=== PATIENT | female | born 1950 | race African-American/Black ===

== ENCOUNTER 2016-12-22 14:01 | Emergency (ER) | payer MEDICARE, OTHER ==
[~2016-12-22] VITALS: Ht 162.6 cm; Wt 90.7 kg
[~2016-12-22 14:01] MED LIST: AMLODIPINE BESY10 MG ORAL; ATENOLOL100 MG ORAL; AUGMENTIN 875-1 EAC1 ORAL; DULERA 100 MCG/13 GM INH; FUROSEMIDE20 M1 ORAL; FUROSEMIDE40 MG ORAL; HYDROCODON-ACE1 EA13 ORAL; IBUPROFEN600 MG ORAL; MONTELUKAST SOD10 MG ORAL; NORCO 5-325 TA1 EACH ORAL; POTASSIUM CHLOR8 ME2 PO; PROAIR HFA8.5 GM INH
[2016-12-22] MEDS ORDERED: BUDESONIDE0.5 MG/2 M IH (14:15)
[2016-12-22 14:40] VITALS: BP 139/78
[2016-12-22 15:54] VITALS: BP 158/58
--- NOTE | 2016-12-22 16:32 | Diagnostic Imaging Report ---
Indication: SWELL Technique: One view of the chest Comparison: 05/06/2015 Findings: No acute infiltrates, effusions, or congestion. Tortuous calcified aorta. Normal heart size. Upper mediastinum unremarkable. No significant change Impression: No acute process.
--- NOTE | 2016-12-22 20:46 | Emergency Room Report ---
History of Present Illness General Chief Complaint: General Complaint Source: Patient, Medical Record (SHUKRI MORENO PSudeepASudeep) Present Illness HPI The patient is a 58-year-old female with a history of hypertension, diabetes, COPD, and CHF presenting for left leg swelling and left-sided back pain with inspiration. The pt was being seen by her PMD who told her to go downstairs and get a chest xray. The pt mistakenly came to the ER for the chest xray. The patient was evaluated for DVT with ultrasound which was unremarkable. Pain is described as an 8/10 sharp sensation to the mid left back and occurs with deep inspiration. It does not radiate. The patient denies other symptoms including nausea, vomiting, fever, chills, cough, shortness of breath (SHUKRI MORENO P.A.) Allergies: Coded Allergies: ASPIRIN (Unverified Allergy, Intermediate, Hives, 07/04/14) IODINE (Unverified Allergy, Mild, Hives, 07/04/14) Patient History Past Medical History: see triage record Pertinent Family History: none Reviewed Nursing Documentation: PMH: Agreed, PSxH: Agreed (SHUKRI MORENO P.A.) Nursing Documentation-PMH Hx Hypertension: Yes Hx Pacemaker: No Hx Asthma: Yes Hx COPD: Yes Hx Diabetes: No Hx Cancer: Yes Hx Gastrointestinal Problems: No Hx Neurological Problems: No (SHUKRI MORENO P.A.) Review of Systems All Other Systems: negative except mentioned in HPI (SHUKRI MORENO P.A.) Physical Exam Vital Signs Date Time Temp Pulse Resp B/P Pulse Ox O2 Delivery O2 Flow Rate FiO2 12/22/16 14:07 98.1 61 16 139/78 99 Room Air Sp02 EP Interpretation: reviewed, normal General Appearance: no apparent distress, alert, GCS 15, non-toxic Head: normocephalic, atraumatic Eyes: bilateral eye PERRL, bilateral eye normal inspection ENT: hearing grossly normal, normal pharynx, no angioedema, normal voice Respiratory: lungs clear, no respiratory distress, no accessory muscle use, no wheezing, speaking full sentences Cardiovascular #1: regular rate, rhythm, no murmur, edema - L lower leg Musculoskeletal: normal range of motion, calf tenderness - L sided, swelling - L lower leg Neurologic: alert, oriented x3, responsive, normal gait Psychiatric: judgement/insight normal, memory normal, mood/affect normal, no suicidal/homicidal ideation Skin: normal color, no rash, warm/dry, well hydrated Lymphatic: no adenopathy (SHUKRI MORENO.Brennon) Medical Decision Making PA Attestation Dr. Giraldo is my supervising physician. Patient management was discussed with my supervising physician (SHUKRI MORENO) Medicare Attestation The history of Erin Carroll has been reviewed and management options for her have been examined and discussed by Prakash Giraldo. I have personally examined and interviewed the patient. (PRAKASH GIRALDO M.D.) Diagnostic Impression: Primary Impression: Encounter for generalized patient complaints ER Course The patient is a 58-year-old female with a history of hypertension, diabetes, COPD, and CHF presenting for left leg swelling and left-sided back pain with inspiration Differential diagnoses considered but not limited to: DVT, PE, COPD exacerbation , CHF, pneumonia, bronchitis, muscle spasm/strain Physical exam: Afebrile. No tachypnea. HEENT exam is unremarkable Lungs are clear to auscultation bilaterally. No respiratory distress. There is tenderness to palpation over the posterior L mid thoracic ribs. Skin is warm and dry. No rash Left leg: There is 2+ edema To the mid L leg which extends past the ankle Dr. Giraldo has spoken with Dr. Holliday regarding this patient and the chest xray. The pt will be WI'ed and will FU with him as the patient was not supposed to present to the ER. ER precautions given (SHUKRI MORENO P.ASudeep) Chest X-Ray Diagnostic Results EP Interpretation: Yes Findings: no consolidation, no effusion, no pneumothorax, no acute cardiopulmonary disease Number of Views: 1 PA Scribe Text I am acting as scribe for my supervising physician. My supervising physician's interpretation of the chest xrays are there is no consolidation, no effusion, no acute cardiopulmonary disease, no pneumothorax (SHUKRI MORENO P.ASudeep) Last Vital Signs Date Time Temp Pulse Resp B/P Pulse Ox O2 Delivery O2 Flow Rate FiO2 12/22/16 15:54 98.1 58 16 158/58 99 Room Air Status: improved (SHUKRI MORENO P.A.) Disposition: HOME, SELF-CARE Condition: Improved Referrals: SHANE HOLLIDAY (PCP) Additional Instructions: I discussed my findings with the patient. All questions and concerns have been answered. Treatment and medication compliance have been addressed. I advised the patient that they need to follow up with primary doctor as soon as possible. Return to ED if symptoms worsen, new symptoms arise, or if needed for any reason. Patient verbalized understanding of discharge instructions. SHUKRI MORENO Dec 22, 2016 20:46 PRAKASH GIRALDO M.D. Dec 25, 2016 02:41
== END 2016-12-22 15:58 | disposition home or self-care (01) ==
LOC: EMR 15:53
DX: R60.0 Localized edema (principal); M54.9 Dorsalgia, unspecified; I10 Essential (primary) hypertension; J45.909 Unspecified asthma, uncomplicated; J44.9 Chronic obstructive pulmonary disease, unspecified; I50.9 Heart failure, unspecified; E11.9 Type 2 diabetes mellitus without complications; Z85.9 Personal history of malignant neoplasm, unspecified; Z88.6 Allergy status to analgesic agent
CPT/HCPCS: 71010; 99283

== ENCOUNTER 2017-02-14 11:05 | Outpatient (CLI) | payer MEDICARE, OTHER ==
[~2017-02-14 11:05] MED LIST changes: +BUDESONIDE0.5 MG/2 M IH
--- NOTE | 2017-02-14 13:49 | Diagnostic Imaging Report ---
Indication: Left-sided weakness Technique: sagittal T1 fast spin echo, axial T1 FLAIR, axial T2 FLAIR, axial T2 FS PROPELLER, axial T2* GRE, axial diffusion weighted images. ADC and exponential ADC maps generated Comparison: Brain CT dated 06/14/12 Findings: No abnormal areas of restricted diffusion to suggest acute infarction. No acute hemorrhage or edema. No mass effect nor midline shift. There is age-related enlargement of ventricles and extra-axial CSF spaces. There is considerable periventricular deep white matter hyperattenuation, probably chronic ischemic change. Vascular flow voids are preserved. Visualized orbits and sinuses are unremarkable. Impression: Chronic and age-related changes. Negative for acute intracranial bleed, mass effect, or infarct
--- NOTE | 2017-02-14 13:57 | Diagnostic Imaging Report ---
Indications: Left-sided weakness Technique: 3D [id number] images obtained through the [facility] [place]. MIP reconstructions were generated in multiple rotational projections Comparison: None Findings: There is considerable image degradation due to motion artifact The right vertebral artery terminates at the PICA origin, is absent distal to it. The left vertebral artery is patent, nonstenotic, fills a diffusely small caliber basilar artery. The bilateral P1 segments are small, poorly visualized. The posterior sural arteries fill predominantly off of large patent posterior communicating arteries. The distal internal carotid arteries are patent, nonstenotic. The bilateral A1 segments are patent. It is unclear whether and anterior communicating artery is present. The anterior cerebral arteries are not well visualized. The bilateral M1 segments are not well-visualized due to motion artifact: Presence or absence of stenoses cannot be assessed. The proximal middle cerebral artery branches appear to be patent but are likewise not well assessed. No definite aneurysm or vascular malformation demonstrated. 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
== END 2017-02-14 13:00 | disposition home or self-care (01) ==
LOC: MRI 11:05
DX: R53.1 Weakness (principal); Z86.73 Personal history of transient ischemic attack (TIA), and cerebral infarction without residual deficits
CPT/HCPCS: 70544; 70551

== ENCOUNTER 2017-09-07 13:29 | Outpatient (CLI) | payer MEDICARE, OTHER | END 2017-09-07 15:29 | disposition home or self-care (01) | LOC: RAD 13:29 | DX: J45.909 Unspecified asthma, uncomplicated (principal) | CPT/HCPCS: 71020 ==

== ENCOUNTER 2018-01-07 12:15 | Inpatient (IN) | payer MEDICARE, OTHER ==
[~2018-01-07] VITALS: Ht 162.6 cm; Wt 106.6 kg
[2018-01-07 13:39] VITALS: BP 124/68
[2018-01-07 13:41] LABS: ANION GAP 9 mmol/L (5-15); BLOOD UREA NITROGEN 22 mg/dL (7-18); CALCIUM 9.3 MG/DL (8.5-10.1); CARBON DIOXIDE 28 MMOL/L (21-32); CHLORIDE 100 MMOL/L (98-107); CREATININE 1.5 MG/DL (0.55-1.30); POTASSIUM 4.4 MMOL/L (3.5-5.1); SODIUM 136 MMOL/L (136-145)
[2018-01-07 13:50] LABS: BASOPHILS % (AUTO) 1.7 % (0.0-2.0); EOSINOPHILS % (AUTO) 6.2 % (0.0-3.0); HEMATOCRIT 33.4 % (37.0-47.0); HEMOGLOBIN 11.5 G/DL (12.0-16.0); LYMPHOCYTES % (AUTO) 33.6 % (20.0-45.0); MEAN CORPUSCULAR VOLUME 92 FL (80-99); MONOCYTES % (AUTO) 12.3 % (1.0-10.0); NEUTROPHILS % (AUTO) 46.2 % (45.0-75.0); PLATELET COUNT 178 K/UL (150-450); RED BLOOD COUNT 3.62 M/UL (4.20-5.40); RED CELL DISTRIBUTION WIDTH 11.6 % (11.6-14.8); WHITE BLOOD COUNT 7.4 K/UL (4.8-10.8)
[2018-01-07 13:56] LABS: ALANINE AMINOTRANSFERASE 31 U/L (12-78); ALBUMIN/GLOBULIN RATIO 0.6 (1.0-2.7); ALKALINE PHOSPHATASE 50 U/L (46-116); ASPARTATE AMINO TRANSFERASE 42 U/L (15-37); BILIRUBIN,TOTAL 0.5 MG/DL (0.2-1.0); CKMB 1.5 NG/ML (0.0-3.6)
[2018-01-07 13:58] LABS: INR 1.1 (0.9-1.1)
[2018-01-07] MEDS ORDERED: Morphine Sulfate 4mg/ml Inj IVP ONE (14:15)
[2018-01-07] MEDS ORDERED: Piperacillin/Tazobactam 3.375 GM in NS 110 ML IVPB ONE (15:15)
[2018-01-07] MEDS ORDERED: Vancomycin 1.5gm/D5W 250ml 250 ML IVPB ONE (15:15)
--- NOTE | 2018-01-07 15:16 | Emergency Room Report ---
History of Present Illness General Chief Complaint: Pain Source: Patient (BELLO MORENO) Present Illness HPI The patient is a 67-year-old female with a history of hypertension, diabetes, COPD, and CHF presenting for R leg swelling. She states that this began occasionally 5 days prior after receiving an IM injection of steroids for asthma. She denies any known allergies and states that she has had multiple injections of the same medication without any problem. Pain is a 10 out of 10 dull ache to the entire right leg. Worse with movement and touch. She also noticed one day fever and chills which has now resolved. She denies any numbness or tingling. She denies any injury to the area. She has tried Motrin and Tylenol which has not helped. She denies any other symptoms including shortness of breath, chest pain, dizziness, cough (BELLO MORENO) HPI Patient also reports "paper heart attack" in the past, though no treatment or work up alleged. Denies chest pain, dyspnea. (Indio Bishop M.D.) Allergies: Coded Allergies: IODINE (Unverified Allergy, Mild, Hives, 07/04/14) Patient History Past Medical History: see triage record Pertinent Family History: none Last Menstrual Period: NA Reviewed Nursing Documentation: PMH: Agreed; PSxH: Agreed (BELLO MORENO) Social History Narrative with (Indio Bishop M.D.) Nursing Documentation-PMH Hx Hypertension: Yes Hx Pacemaker: No Hx Asthma: Yes Hx COPD: Yes Hx Diabetes: No Hx Cancer: No Hx Gastrointestinal Problems: No Hx Neurological Problems: No (BELLO MORENO) Review of Systems All Other Systems: negative except mentioned in HPI (BELLO MORENO) Physical Exam Vital Signs Date Time Temp Pulse Resp B/P (MAP) Pulse Ox O2 Delivery O2 Flow Rate FiO2 01/07/18 12:24 98.5 70 16 124/68 95 98.4 01/07/18 13:39 Room Air 01/07/18 15:07 98 Sp02 EP Interpretation: reviewed, normal General Appearance: no apparent distress, alert, GCS 15, non-toxic Head: normocephalic, atraumatic Eyes: bilateral eye normal inspection, bilateral eye PERRL ENT: hearing grossly normal, normal pharynx, no angioedema, normal voice Neck: full range of motion, supple/symm/no masses Respiratory: chest non-tender, lungs clear, normal breath sounds, no wheezing, speaking full sentences Cardiovascular #1: regular rate, rhythm, no edema Gastrointestinal: normal bowel sounds, non tender, soft, non-distended, no guarding, no rebound Musculoskeletal: normal range of motion, inflammation - R lower leg, swelling - R leg from knee to toes, tender - Diffuse R leg Neurologic: alert, oriented x3, responsive, motor strength/tone normal, sensory intact, speech normal Psychiatric: judgement/insight normal, memory normal, mood/affect normal, no suicidal/homicidal ideation Skin: other - erythema to R lower leg from mid tobia to mid foot Lymphatic: adenopathy - R inguinal (BELLO MORENO P.ASudeep) Medical Decision Making PA Attestation Dr. Bishop is my supervising physician. Patient management was discussed with my supervising physician (BELLO MORENO PSudeepASudeep) Diagnostic Impression: Primary Impression: Non-ST elevation NV (NSTEMI) Additional Impression: Cellulitis of leg, right ER Course The patient is a 67-year-old female with a history of hypertension, diabetes, COPD, and CHF presenting for R leg swelling. DDx considered but not limited to: Cellulitis, DVT, allergic reaction, CHF, NV, among others PE: vitals WNL. NAD RRR. No MRG Lungs CTA bilat. No resp distress + R inguinal lymph nodes R leg from knee to toes has 3+ pitting edema with erythema and is warm to the touch. + Tender. SILT CBC unremarkable. No leukocytosis CMP unremarkable Lactate essentially negative Troponin I essentially positive at 0.[address] segment changes. NSR DVT study negative CXR unremarkable for acute findings The patient is given IV vancomycin and Zosyn and will be admitted to this hospital in serious but stable condition for right leg cellulitis as well as NSTEMI Dr. Bishop has spoken with admitting physician Laboratory Tests Test 01/07/18 13:05 01/07/18 14:15 White Blood Count 7.4 K/UL (4.8-10.8) Red Blood Count 3.62 M/UL (4.20-5.40) L Hemoglobin 11.5 G/DL (12.0-16.0) L Hematocrit 33.4 % (37.0-47.0) L Mean Corpuscular Volume 92 FL (80-99) Mean Corpuscular Hemoglobin 31.7 PG (27.0-31.0) H Mean Corpuscular Hemoglobin Concent 34.3 G/DL (32.0-36.0) Red Cell Distribution Width 11.6 % (11.6-14.8) Platelet Count 178 K/UL (150-450) Mean Platelet Volume 7.2 FL (6.5-10.1) Neutrophils (%) (Auto) 46.2 % (45.0-75.0) Lymphocytes (%) (Auto) 33.6 % (20.0-45.0) Monocytes (%) (Auto) 12.3 % (1.0-10.0) H Eosinophils (%) (Auto) 6.2 % (0.0-3.0) H Basophils (%) (Auto) 1.7 % (0.0-2.0) Prothrombin Time 11.0 SEC (9.30-11.50) Prothrombin Time INR 1.1 (0.9-1.1) PTT 24 SEC (23-33) Sodium Level 136 MMOL/L (136-145) Potassium Level 4.4 MMOL/L (3.5-5.1) Chloride Level 100 MMOL/L (98-107) Carbon Dioxide Level 28 MMOL/L (21-32) Anion Gap 9 mmol/L (5-15) Blood Urea Nitrogen 22 mg/dL (7-18) H Creatinine 1.5 MG/DL (0.55-1.30) H Estimate Glomerular Filtration Rate 41.7 mL/min (>60) Glucose Level 88 MG/DL (74-106) Calcium Level 9.3 MG/DL (8.5-10.1) Total Bilirubin 0.5 MG/DL (0.2-1.0) Aspartate Amino Transferase (AST) 42 U/L (15-37) H Alanine Aminotransferase (ALT) 31 U/L (12-78) Alkaline Phosphatase 50 U/L (46-116) Creatine Kinase MB 1.5 NG/ML (0.0-3.6) Troponin I 0.173 ng/mL (0.000-0.056) Total Protein 7.9 G/DL (6.4-8.2) Albumin 3.0 G/DL (3.4-5.0) L Globulin 4.9 g/dL Albumin/Globulin Ratio 0.6 (1.0-2.7) L Lipase 137 U/L (73-393) Lactic Acid Level 0.40 mmol/L (0.66-2.22) L Lab Results Impression CBC unremarkable. No leukocytosis CMP unremarkable Lactate essentially negative Troponin I essentially positive at 0.173 (BELLO MORENO P.A.) ER Course Please see above notes. I examined this patient and agree with the findings. Discussed with Dr. Holliday. (Indio Bishop M.D.) EKG Diagnostic Results EP Interpretation: NSR, no acute findings Rate: normal - 66 Rhythm: NSR ST Segments: no acute changes ASA given to the pt in ED: Yes PA Scribe Text EKG was reviewed and read with my supervising physician. No acute ST segment changes are seen. Normal rate and rhythm. No acute changes. ASA given due to Troponin elevation (BELLO MORENO P.A.) Rate: normal Rhythm: NSR ST Segments: no acute changes (Indio Bishop M.D.) Rhythm Strip Diag. Results EP Interpretation: yes Rhythm: NSR, no PVC's, no ectopy (Indio Bishop M.D.) Chest X-Ray Diagnostic Results Chest X-Ray Diagnostic Results : Chest X-Ray Ordered: Yes # of Views/Limited/Complete: 1 View Indication: Other - edema EP Interpretation: Yes PA Xray: Interpretation reviewed, by supervising MD, and agrees with findings. Interpretation: no consolidation, no effusion, no pneumothorax, no acute cardiopulmonary disease Impression: No acute disease Electronically Signed by: Bello Moreno PA-C (BELLO MORENO P.A.) Chest X-Ray Diagnostic Results : EP Interpretation: Yes Impression: No acute disease Electronically Signed by: I reviewed this xray and agree with findings - Indio Bishop MD (Indio Bishop M.D.) CT/MRI/US Diagnostic Results CT/MRI/US Diagnostic Results : Imaging Test Ordered: Venous duplex R leg Impression Negative (BELLO MORENO P.A.) Last Vital Signs Date Time Temp Pulse Resp B/P (MAP) Pulse Ox O2 Delivery O2 Flow Rate FiO2 4/15/18 15:07 69 16 Room Air 98 01/07/18 14:43 98.4 01/07/18 13:39 124/68 95 Status: improved (BELLO MORENO) Status: improved (Indio Bishop M.D.) Disposition: ADMITTED INPATIENT Condition: Serious Referrals: SHANE HOLLIDAY (PCP) BELLO MORENO Jan 07, 2018 15:16 Indio Bishop M.D. Jan 07, 2018 21:16
[2018-01-07] MEDS ORDERED: ASPIR 8181 MG ORAL (15:44)
[2018-01-07] MEDS ORDERED: MULTIVITAMINS1 EAC2 ORAL (15:44)
[2018-01-07 15:45] VITALS: BP 140/89
[2018-01-07 16:50] VITALS: BP 150/87
[2018-01-07] MEDS ORDERED: Milk of Magnesia 30ml Ud ORAL PRN (18:45)
[2018-01-07] MEDS ORDERED: Zolpidem 5mg tab ORAL PRN (18:45)
[2018-01-07 20:00] VITALS: BP 147/76
[2018-01-07] MEDS ORDERED: Atenolol 12.5mg PO SCH (21:00)
[2018-01-07] MEDS ORDERED: Atenolol 25mg tab ORAL SCH (21:30)
[2018-01-07] MEDS: Heparin 5000 units/ml inj SUBQ SCH (21:58)
[2018-01-07] MEDS: Nitroglycerin 2% oint pkt TOPIC SCH (21:59)
[2018-01-08] VITALS: BP 159/78
[2018-01-08] MEDS: HYDROcodone/Acetamin 10/325 tab ORAL PRN ×3 (00:40→19:37)
[2018-01-08] MEDS: Albuterol 90mcg Inhaler 8gm INH SCH ×4 (01:00→19:03)
--- NOTE | 2018-01-08 02:15 | Consultation ---
DATE OF CONSULTATION: 01/07/2018 CARDIOLOGY CONSULTATION CONSULTING PHYSICIAN: Indio Martini M.D. REQUESTING PHYSICIAN: Padilla Quiros M.D. REASON FOR CONSULTATION: Elevated troponin level. HISTORY OF PRESENT ILLNESS: This is a 67-year-old female with multiple risk factors for coronary artery disease, who presented to the emergency room with swelling of her right leg. It began 5 days ago after receiving intramuscular injection of steroids for an asthma attack. She has had previous injections of steroids without any problem. The pain in her leg was severe and she had limitations of her movement. Some fevers and chills also were noted yesterday. She has not had any chest pain or shortness of breath. The patient notes that she was told of a possible heart attack in the past although she had no symptoms or treatment. ALLERGIES: Include iodine. PAST MEDICAL HISTORY: Includes hypertension, COPD, diabetes mellitus, and history of congestive heart failure. SOCIAL HISTORY: No alcohol or substance abuse. Prior smoker. MEDICATIONS: Reviewed and reconciled. REVIEW OF SYSTEMS: Otherwise unremarkable. PHYSICAL EXAMINATION: VITAL SIGNS: Afebrile, blood pressure 124/68, pulse 70, respiratory rate 16. HEENT: Normocephalic and atraumatic. Conjunctivae pink. Oropharynx clear. Mucous membranes moist. NECK: Supple. Jugular venous pressure normal. LUNGS: Clear. CARDIAC: Regular rhythm and rate. Normal S1, S2 with a fourth heart sound. ABDOMEN: Soft, nontender. EXTREMITIES: The right leg has erythema from the midfoot to the tibia and there is associated adenopathy and warmth. DIAGNOSTIC DATA: Venous duplex of the lower extremities, negative for DVT. EKG with sinus rhythm and no acute ST-T wave changes. Chest x-ray with no acute process. LABORATORY DATA: White count 7.4, hemoglobin 11.5. Troponin 0.173. CK-MB is 1.5, which is negative. BUN 22, creatinine 1.5. Electrolytes within normal limits. Lactic acid is 0.4. IMPRESSION: 1. Cellulitis of right lower extremity. 2. Elevated troponin level with no clinical signs of acute myocardial infarction. 3. Hypertensive heart disease. 4. History of COPD. PLAN: 1. Cardiac monitoring. 2. Oral aspirin. 3. Beta-blockade. 4. Serial troponin . 5. Empiric nitrates. 6. Further assessment of coronary flow reserve. 7. We will follow. Indio Martini M.D. DR: Dustin JOB#: [id number] CC:
[2018-01-08 04:00] VITALS: BP 135/77
[2018-01-08 04:44] LABS: BASOPHILS % (AUTO) 1.2 % (0.0-2.0); EOSINOPHILS % (AUTO) 7.1 % (0.0-3.0); HEMATOCRIT 31.4 % (37.0-47.0); HEMOGLOBIN 10.9 G/DL (12.0-16.0); LYMPHOCYTES % (AUTO) 34.5 % (20.0-45.0); MEAN CORPUSCULAR VOLUME 92 FL (80-99); MONOCYTES % (AUTO) 11.9 % (1.0-10.0); NEUTROPHILS % (AUTO) 45.4 % (45.0-75.0); PLATELET COUNT 181 K/UL (150-450); RED BLOOD COUNT 3.41 M/UL (4.20-5.40); RED CELL DISTRIBUTION WIDTH 11.9 % (11.6-14.8); WHITE BLOOD COUNT 7.1 K/UL (4.8-10.8)
[2018-01-08 05:22] LABS: ANION GAP 6 mmol/L (5-15); BLOOD UREA NITROGEN 21 mg/dL (7-18); CALCIUM 8.7 MG/DL (8.5-10.1); CARBON DIOXIDE 27 MMOL/L (21-32); CHLORIDE 101 MMOL/L (98-107); CHOLESTEROL 141 MG/DL (< 200); CREATININE 1.7 MG/DL (0.55-1.30); HDL CHOLESTEROL 31 MG/DL (40-60); POTASSIUM 3.6 MMOL/L (3.5-5.1); SODIUM 134 MMOL/L (136-145); TRIGLYCERIDES 62 MG/DL (30-150)
[2018-01-08 05:27] LABS: CKMB 1.3 NG/ML (0.0-3.6)
[2018-01-08] MEDS: Nitroglycerin 2% oint pkt TOPIC SCH (06:09)
[2018-01-08 08:00] VITALS: BP 124/71
--- NOTE | 2018-01-08 08:33 | Diagnostic Imaging Report ---
Indication: Dyspnea Technique: One view of the chest Comparison: 09/07/2017 Findings: The right hemidiaphragm is elevated. The lungs and pleural spaces are clear. The heart is upper limits normal in size. The aorta is tortuous and calcified. No significant interim change Impression: No acute process
[2018-01-08] MEDS: Atenolol 12.5mg PO SCH ×2 (09:00→20:45)
[2018-01-08] MEDS: Aspirin EC 81mg tab ORAL SCH (10:13)
[2018-01-08] MEDS: Heparin 5000 units/ml inj SUBQ SCH ×2 (10:14→20:47)
[2018-01-08 12:00] VITALS: BP 143/97
[2018-01-08] MEDS: Vancomycin 1gm in D5W 275ml IVPB SCH (15:01)
[2018-01-08 16:00] VITALS: BP 135/58
[2018-01-08 20:52] VITALS: BP 141/83
--- NOTE | 2018-01-08 21:40 | Cardiology Report ---
APPROVED REPORT EKG Measurement Heart [id number] AR [id number] [id number] Sinus rhythm with occasional premature ventricular complexes Nonspecific T wave abnormality Abnormal ECG
--- NOTE | 2018-01-08 22:45 | History and Physical Report ---
DATE OF ADMISSION: 01/07/2018 REASON FOR ADMISSION: Possible non-STEMI myocardial infarction, concerned for significant cellulitis and lower extremity edema. HISTORY OF PRESENT ILLNESS: This is a 67-year-old female, well known to me. The patient presents with elevated troponin and also significant right lower extremity edema and erythema. The patient notes that her right leg has been swollen over the past five days. The patient had been receiving intramuscular injections of steroids for asthma exacerbation. The patient notes right leg pain, erythema as well as swelling. The patient did undergo a venous and arterial ultrasound, which were negative. The patient also had elevated troponin and will be admitted to telemetry. Care discussed and reviewed. The patient does follow up with me in the office on a regular basis. PAST MEDICAL HISTORY: Notable for hypertension, COPD, diabetes, and history of CHF. MEDICATIONS: Reviewed. ALLERGIES: Reviewed. SOCIAL HISTORY: The patient does not smoke or drink at this present time. She is retired. She is ambulatory. REVIEW OF SYSTEMS: Otherwise negative with the exception of the above. PHYSICAL EXAMINATION: GENERAL: A well-developed female, comfortable, in no significant distress. VITAL SIGNS: Blood pressure 143/97, pulse 78, respirations 20, sats 93% on room air, and temperature is 98.6. HEENT: Negative. Extraocular movements are grossly intact. NECK: Supple. LUNGS: Fairly clear and symmetric. No rhonchi or wheezes. CARDIAC: S1 and S2. Regular rate and rhythm without murmurs, rubs, or gallops. ABDOMEN: Soft, nontender, and nondistended. Obese. EXTREMITIES: No cyanosis or clubbing. There is significant edema of the right leg with associated erythema. NEUROLOGICAL: Grossly nonfocal. Alert and oriented x3. LABORATORY DATA: Reviewed. Hemoglobin 10.9, hematocrit 31, BUN 21, and creatinine 1.7. Troponin initially 0.17 then 0.15 then 0.16. The cholesterol appears to be fairly well controlled. TSH is normal. IMPRESSION: Possible non-ST elevation myocardial infarction versus troponin leak, evidence of chronic renal failure, evidence of chronic anemia, evidence of right lower extremity cellulitis with associated edema, and history of chronic obstructive pulmonary disease. RECOMMENDATIONS: Supportive care. Resume medication, IV antibiotics as outlined. Cardiac management with aspirin. Monitor leg exam and monitor laboratories. Monitor renal function and consider resting stress test prior to discharge. We will discuss with Cardiology further and recommend further. Padilla Quiros M.D. DR: ANAHY JOB#: [id number] CC:
[2018-01-09] VITALS: BP 132/75
--- NOTE | 2018-01-09 00:45 | Progress Note ---
DATE: 01/08/2018 CARDIOLOGY PROGRESS NOTE SUBJECTIVE: The patient still has significant pain and discomfort from her right leg with swelling continues. There is a repeat venous and arterial duplex scan noted with no clotting or arterial insufficiency. Monitored rhythm, sinus. OBJECTIVE: VITAL SIGNS: Blood pressure 141/83, pulse 82, respiratory rate 18, and afebrile. NECK: Supple. LUNGS: Clear. CARDIAC: Regular. Normal S1 and S2 with a fourth heart sound. ABDOMEN: Soft. EXTREMITIES: With 2+ edema on the right leg with warmth and erythema. LABORATORY AND DIAGNOSTIC DATA: Monitored rhythm is sinus with occasional PVC. Troponin levels remain persistently increased at 0.154, 0.167, and 0.159 respectively. CK is 181 with an MB and MB index both negative. BUN 21, creatinine 1.7, potassium 3.6, sodium 134, and bicarbonate 27. LDL cholesterol 94. TSH 1.4. IMPRESSION: 1. Right lower extremity cellulitis. 2. History of deep venous thrombosis on the left lower extremity, presently with no signs of recurrence. 3. Elevated troponin levels, likely false positive. There are no clinical signs of acute myocardial infarction. 4. Chronic kidney disease. 5. Hyponatremia. 6. lipid panel. 7. Hypertensive heart disease. PLAN: 1. Antimicrobials. 2. DVT prophylaxis. 3. Cardiac monitoring. 4. Anti-platelet and antianginal therapy. 5. We will pursue myocardial perfusion scan for assessment of coronary flow reserve prior to discharge and risk stratify for further care. Indio Martini M.D. DR: LILLIE JOB#: [id number] CC:
[2018-01-09] MEDS: Albuterol 90mcg Inhaler 8gm INH SCH ×4 (01:00→19:26)
[2018-01-09 04:00] VITALS: BP 144/88
[2018-01-09 05:59] LABS: BASOPHILS % (AUTO) 1.7 % (0.0-2.0); EOSINOPHILS % (AUTO) 4.7 % (0.0-3.0); HEMATOCRIT 31.3 % (37.0-47.0); LYMPHOCYTES % (AUTO) 40.5 % (20.0-45.0); MEAN CORPUSCULAR VOLUME 92 FL (80-99); MONOCYTES % (AUTO) 13.5 % (1.0-10.0); NEUTROPHILS % (AUTO) 39.6 % (45.0-75.0); PLATELET COUNT 179 K/UL (150-450); RED BLOOD COUNT 3.38 M/UL (4.20-5.40); RED CELL DISTRIBUTION WIDTH 11.5 % (11.6-14.8); WHITE BLOOD COUNT 8.7 K/UL (4.8-10.8)
[2018-01-09 06:23] LABS: ALANINE AMINOTRANSFERASE 28 U/L (12-78); ALBUMIN 2.8 G/DL (3.4-5.0); ALBUMIN/GLOBULIN RATIO 0.6 (1.0-2.7); ALKALINE PHOSPHATASE 48 U/L (46-116); ANION GAP 5 mmol/L (5-15); ASPARTATE AMINO TRANSFERASE 29 U/L (15-37); BILIRUBIN,TOTAL 0.5 MG/DL (0.2-1.0); BLOOD UREA NITROGEN 22 mg/dL (7-18); CALCIUM 8.8 MG/DL (8.5-10.1); CARBON DIOXIDE 28 MMOL/L (21-32); CHLORIDE 100 MMOL/L (98-107); CREATININE 1.8 MG/DL (0.55-1.30); POTASSIUM 4.1 MMOL/L (3.5-5.1); SODIUM 133 MMOL/L (136-145)
[2018-01-09 08:00] VITALS: BP 134/72
[2018-01-09] MEDS: HYDROcodone/Acetamin 10/325 tab ORAL PRN ×2 (08:06→14:08)
[2018-01-09] MEDS: Aspirin EC 81mg tab ORAL SCH (08:06)
[2018-01-09] MEDS: Heparin 5000 units/ml inj SUBQ SCH ×2 (08:08→20:29)
[2018-01-09] MEDS: Atenolol 12.5mg PO SCH ×2 (09:14→20:27)
[2018-01-09 12:00] VITALS: BP 122/58
--- NOTE | 2018-01-09 14:54 | Cardiology Report ---
APPROVED REPORT EKG Measurement Heart [id number] WA [id number] Normal sinus rhythm Nonspecific T wave abnormality Abnormal ECG
[2018-01-09 16:00] VITALS: BP 131/65
[2018-01-09] MEDS: Vancomycin 1gm in D5W 275ml IVPB SCH (16:02)
--- NOTE | 2018-01-09 16:54 | General Progress Note ---
Assessment/Plan Assessment/Plan IMPRESSION: Possible non-ST elevation myocardial infarction versus troponin leak, evidence of chronic renal failure, evidence of chronic anemia, evidence of right lower extremity cellulitis with associated edema, and history of chronic obstructive pulmonary disease. PLAN care as is IV antibiotics cards recommendations maintain same monitor as is impression, plan, and exam edited and reviewed in detail care discussed with RN Subjective Allergies: Coded Allergies: IODINE (Unverified Allergy, Mild, Hives, 07/04/14) Subjective care noted slightly improved labs and cultures noted Objective Last 24 Hour Vital Signs Date Time Temp Pulse Resp B/P (MAP) Pulse Ox O2 Delivery O2 Flow Rate FiO2 01/09/18 16:00 98.1 79 19 131/65 97 Room Air 98.1 01/09/18 15:18 67 01/09/18 13:06 80 18 95 Room Air 21 01/09/18 13:06 79 20 95 Room Air 21 01/09/18 12:00 98.1 62 19 122/58 99 Room Air 98.1 01/09/18 11:47 63 01/09/18 09:14 79 134/72 01/09/18 08:00 100.0 79 19 134/72 92 Room Air 100.0 01/09/18 07:32 75 18 95 Room Air 21 01/09/18 07:32 74 18 96 Room Air 21 01/09/18 07:31 Room Air 21 01/09/18 07:26 75 01/09/18 04:00 98.0 76 19 144/88 95 98.0 01/09/18 04:00 78 01/09/18 01:06 Room Air 21 01/09/18 01:05 Room Air 21 01/09/18 00:00 68 01/09/18 00:00 97.7 79 17 132/75 95 97.7 01/08/18 20:52 97.9 82 18 141/83 96 97.9 01/08/18 20:36 98.8 01/08/18 20:00 81 01/08/18 19:37 98.8 01/08/18 19:04 77 16 95 Room Air 21 01/08/18 19:03 78 16 95 Room Air 21 01/08/18 18:52 99.8 01/08/18 17:53 100.9 01/08/18 17:26 Nasal Cannula 2.0 28 Intake and Output 01/08/18 01/09/18 19:00 07:00 Intake Total 875.000 ml 360 ml Balance 875.000 ml 360 ml Intake Oral 600 ml 360 ml IV Total 275.000 ml # Voids 2 2 # Bowel Movements 1 Laboratory Tests 01/08/18 20:15: Troponin I 0.159H 01/09/18 03:40: Troponin I 0.163H, White Blood Count 8.7, Red Blood Count 3.38L, Hemoglobin 11.0L, Hematocrit 31.3L, Mean Corpuscular Volume 92, Mean Corpuscular Hemoglobin 32.6H, Mean Corpuscular Hemoglobin Concent 35.3, Red Cell Distribution Width 11.5L, Platelet Count 179, Mean Platelet Volume 6.3L, Neutrophils (%) (Auto) 39.6L, Lymphocytes (%) (Auto) 40.5, Monocytes (%) (Auto) 13.5H, Eosinophils (%) (Auto) 4.7H, Basophils (%) (Auto) 1.7, Sodium Level 133L , Potassium Level 4.1, Chloride Level 100, Carbon Dioxide Level 28, Anion Gap 5 , Blood Urea Nitrogen 22H, Creatinine 1.8H, Estimat Glomerular Filtration Rate 33.8, Glucose Level 93, Calcium Level 8.8, Total Bilirubin 0.5, Aspartate Amino Transf (AST/SGOT) 29, Alanine Aminotransferase (ALT/SGPT) 28, Alkaline Phosphatase 48, Total Protein 7.7, Albumin 2.8L, Globulin 4.9, Albumin/Globulin Ratio 0.6L Height (Feet): 5 Height (Inches): 4.00 Weight (Pounds): 235 Objective GENERAL: A well-developed female, comfortable, in no significant distress. HEENT: Negative. Extraocular movements are grossly intact. NECK: Supple. LUNGS: Fairly clear and symmetric. No rhonchi or wheezes. CARDIAC: S1 and S2. Regular rate and rhythm without murmurs, rubs, or gallops. ABDOMEN: Soft, nontender, and nondistended. Obese. EXTREMITIES: No cyanosis or clubbing. edema of the right leg with associated erythema. NEUROLOGICAL: Grossly nonfocal. Alert and oriented x3. SHANE HOLLIDAY Jan 09, 2018 16:54
[2018-01-09 20:00] VITALS: BP 153/63
[2018-01-10] VITALS: BP 146/63
[2018-01-10] MEDS: Albuterol 90mcg Inhaler 8gm INH SCH ×4 (00:07→18:59)
--- NOTE | 2018-01-10 02:00 | Progress Note ---
DATE: 01/09/2018 CARDIOLOGY PROGRESS NOTE SUBJECTIVE: The patient continues to have pain, warmth, and swelling of her right leg. She is on IV antibiotics. Mobility is impaired. The patient denies chest pain. She has some shortness of breath at times. OBJECTIVE: VITAL SIGNS: Temperature max 100, blood pressure 134/72, heart rate 79, and respiratory rate 19. Monitored rhythm, sinus. LUNGS: Diminished breath sounds. No rales. No wheezes. HEART: Regular rhythm and rate. Normal S1, S2 with a fourth heart sound. ABDOMEN: Soft, nontender. EXTREMITIES: As noted with right edema and erythema and warmth of the leg. LABORATORY DATA: Cultures negative. White count 8.7, hemoglobin 11. Troponin is unchanged in the range of 0.163, BUN 22, creatinine 1.8. Albumin 2.8. IMPRESSION: 1. Cellulitis, right lower extremity. 2. Moderate protein-calorie malnutrition. 3. Acute on chronic kidney injury. 4. Possible chronic ischemic heart disease. No signs of acute myocardial infarction. 5. Persistent troponin leak. 6. History of DVT on the left lower extremity with no signs of current deep venous obstruction. PLAN: 1. Antimicrobials. 2. Adjust IV fluids. 3. DVT prophylaxis. 4. Protein supplement. 5. Myocardial perfusion scan. Indio Martini M.D. DR: ELA JOB#: [id number] CC:
[2018-01-10 04:00] VITALS: BP 143/60
[2018-01-10 08:00] VITALS: BP 135/71
[2018-01-10] MEDS ORDERED: Lexiscan 0.4mg/5ml syringe IV ONE (08:00)
--- NOTE | 2018-01-10 08:22 | General Progress Note ---
Assessment/Plan Assessment/Plan IMPRESSION: Possible non-ST elevation myocardial infarction versus troponin leak, evidence of chronic renal failure, evidence of chronic anemia, evidence of right lower extremity cellulitis with associated edema, and history of chronic obstructive pulmonary disease. PLAN care as is IV antibiotics cards recommendations noted maintain same monitor as is and hope to dc in am as patient refusing any further cardiac work up impression, plan, and exam edited and reviewed in detail care discussed with RN Subjective Allergies: Coded Allergies: IODINE (Unverified Allergy, Mild, Hives, 07/04/14) Subjective care noted refusing stress test wants to go home labs and cultures noted Objective Last 24 Hour Vital Signs Date Time Temp Pulse Resp B/P (MAP) Pulse Ox O2 Delivery O2 Flow Rate FiO2 01/10/18 04:00 98.5 67 20 143/60 97 Room Air 98.5 01/10/18 03:47 71 01/10/18 02:33 84 18 98 Room Air 21 01/10/18 02:31 84 20 98 Room Air 21 01/10/18 01:30 100.3 01/10/18 00:31 103.0 01/10/18 00:08 Room Air 01/10/18 00:07 Room Air 01/10/18 00:00 103.0 63 20 146/63 94 Room Air 103.0 01/09/18 23:51 84 01/09/18 20:00 98.0 70 24 153/63 94 Room Air 98.0 01/09/18 19:41 72 01/09/18 19:29 84 18 94 Room Air 21 01/09/18 19:29 84 20 94 Room Air 21 01/09/18 19:28 Room Air 21 01/09/18 19:27 94 Room Air 21 01/09/18 16:00 98.1 79 19 131/65 97 Room Air 98.1 01/09/18 15:18 67 01/09/18 13:06 80 18 95 Room Air 21 01/09/18 13:06 79 20 95 Room Air 21 01/09/18 12:00 98.1 62 19 122/58 99 Room Air 98.1 01/09/18 11:47 63 01/09/18 09:14 79 134/72 Intake and Output 01/09/18 01/10/18 19:00 07:00 Intake Total 775.000 ml 300 ml Output Total 600 ml Balance 775.000 ml -300 ml Intake Oral 500 ml 300 ml IV Total 275.000 ml Output Urine Total 600 ml # Voids 4 2 Labs Test 01/07/18 13:05 01/07/18 14:15 01/07/18 20:11 01/08/18 03:35 White Blood Count 7.4 K/UL (4.8-10.8) 7.1 K/UL (4.8-10.8) Red Blood Count 3.62 M/UL (4.20-5.40) 3.41 M/UL (4.20-5.40) Hemoglobin 11.5 G/DL (12.0-16.0) 10.9 G/DL (12.0-16.0) Hematocrit 33.4 % (37.0-47.0) 31.4 % (37.0-47.0) Mean Corpuscular Volume 92 FL (80-99) 92 FL (80-99) Mean Corpuscular Hemoglobin 31.7 PG (27.0-31.0) 32.0 PG (27.0-31.0) Mean Corpuscular Hemoglobin Concent 34.3 G/DL (32.0-36.0) 34.7 G/DL (32.0-36.0) Red Cell Distribution Width 11.6 % (11.6-14.8) 11.9 % (11.6-14.8) Platelet Count 178 K/UL (150-450) 181 K/UL (150-450) Mean Platelet Volume 7.2 FL (6.5-10.1) 7.4 FL (6.5-10.1) Neutrophils (%) (Auto) 46.2 % (45.0-75.0) 45.4 % (45.0-75.0) Lymphocytes (%) (Auto) 33.6 % (20.0-45.0) 34.5 % (20.0-45.0) Monocytes (%) (Auto) 12.3 % (1.0-10.0) 11.9 % (1.0-10.0) Eosinophils (%) (Auto) 6.2 % (0.0-3.0) 7.1 % (0.0-3.0) Basophils (%) (Auto) 1.7 % (0.0-2.0) 1.2 % (0.0-2.0) Prothrombin Time 11.0 SEC (9.30-11.50) Prothromb Time International Ratio 1.1 (0.9-1.1) Activated Partial Thromboplast Time 24 SEC (23-33) Sodium Level 136 MMOL/L (136-145) 134 MMOL/L (136-145) Potassium Level 4.4 MMOL/L (3.5-5.1) 3.6 MMOL/L (3.5-5.1) Chloride Level 100 MMOL/L (98-107) 101 MMOL/L (98-107) Carbon Dioxide Level 28 MMOL/L (21-32) 27 MMOL/L (21-32) Anion Gap 9 mmol/L (5-15) 6 mmol/L (5-15) Blood Urea Nitrogen 22 mg/dL (7-18) 21 mg/dL (7-18) Creatinine 1.5 MG/DL (0.55-1.30) 1.7 MG/DL (0.55-1.30) Estimat Glomerular Filtration Rate 41.7 mL/min (>60) 36.1 mL/min (>60) Glucose Level 88 MG/DL (74-106) 89 MG/DL (74-106) Calcium Level 9.3 MG/DL (8.5-10.1) 8.7 MG/DL (8.5-10.1) Total Bilirubin 0.5 MG/DL (0.2-1.0) Aspartate Amino Transf (AST/SGOT) 42 U/L (15-37) Alanine Aminotransferase (ALT/SGPT) 31 U/L (12-78) Alkaline Phosphatase 50 U/L (46-116) Creatine Kinase MB 1.5 NG/ML (0.0-3.6) 1.3 NG/ML (0.0-3.6) Troponin I 0.173 ng/mL (0.000-0.056) 0.170 ng/mL (0.000-0.056) 0.154 ng/mL (0.000-0.056) Total Protein 7.9 G/DL (6.4-8.2) Albumin 3.0 G/DL (3.4-5.0) Globulin 4.9 g/dL Albumin/Globulin Ratio 0.6 (1.0-2.7) Lipase 137 U/L (73-393) Lactic Acid Level 0.40 mmol/L (0.66-2.22) Total Creatine Kinase 181 U/L (26-308) Creatine Kinase MB Relative Index 0.7 Triglycerides Level 62 MG/DL (30-150) Cholesterol Level 141 MG/DL (< 200) LDL Cholesterol 94 mg/dL (<100) HDL Cholesterol 31 MG/DL (40-60) Cholesterol/HDL Ratio 4.5 (3.3-4.4) Thyroid Stimulating Hormone (TSH) 1.429 uiU/mL (0.358-3.740) Test 01/08/18 12:10 01/08/18 20:15 01/09/18 03:40 Troponin I 0.167 ng/mL (0.000-0.056) 0.159 ng/mL (0.000-0.056) 0.163 ng/mL (0.000-0.056) White Blood Count 8.7 K/UL (4.8-10.8) Red Blood Count 3.38 M/UL (4.20-5.40) Hemoglobin 11.0 G/DL (12.0-16.0) Hematocrit 31.3 % (37.0-47.0) Mean Corpuscular Volume 92 FL (80-99) Mean Corpuscular Hemoglobin 32.6 PG (27.0-31.0) Mean Corpuscular Hemoglobin Concent 35.3 G/DL (32.0-36.0) Red Cell Distribution Width 11.5 % (11.6-14.8) Platelet Count 179 K/UL (150-450) Mean Platelet Volume 6.3 FL (6.5-10.1) Neutrophils (%) (Auto) 39.6 % (45.0-75.0) Lymphocytes (%) (Auto) 40.5 % (20.0-45.0) Monocytes (%) (Auto) 13.5 % (1.0-10.0) Eosinophils (%) (Auto) 4.7 % (0.0-3.0) Basophils (%) (Auto) 1.7 % (0.0-2.0) Sodium Level 133 MMOL/L (136-145) Potassium Level 4.1 MMOL/L (3.5-5.1) Chloride Level 100 MMOL/L (98-107) Carbon Dioxide Level 28 MMOL/L (21-32) Anion Gap 5 mmol/L (5-15) Blood Urea Nitrogen 22 mg/dL (7-18) Creatinine 1.8 MG/DL (0.55-1.30) Estimat Glomerular Filtration Rate 33.8 mL/min (>60) Glucose Level 93 MG/DL (74-106) Calcium Level 8.8 MG/DL (8.5-10.1) Total Bilirubin 0.5 MG/DL (0.2-1.0) Aspartate Amino Transf (AST/SGOT) 29 U/L (15-37) Alanine Aminotransferase (ALT/SGPT) 28 U/L (12-78) Alkaline Phosphatase 48 U/L (46-116) Total Protein 7.7 G/DL (6.4-8.2) Albumin 2.8 G/DL (3.4-5.0) Globulin 4.9 g/dL Albumin/Globulin Ratio 0.6 (1.0-2.7) Height (Feet): 5 Height (Inches): 4.00 Weight (Pounds): 235 Objective GENERAL: A well-developed female, comfortable, in no significant distress. HEENT: Negative. Extraocular movements are grossly intact. NECK: Supple. LUNGS: Fairly clear and symmetric. No rhonchi or wheezes. CARDIAC: S1 and S2. Regular rate and rhythm without murmurs, rubs, or gallops. ABDOMEN: Soft, nontender, and nondistended. Obese. EXTREMITIES: No cyanosis or clubbing. edema of the right leg with associated erythema seems improved. NEUROLOGICAL: Grossly nonfocal. Alert and oriented x3. SHANE HOLLIDAY Jan 10, 2018 08:22
[2018-01-10] MEDS: Atenolol 12.5mg PO SCH ×2 (09:22→20:54)
[2018-01-10] MEDS: Aspirin EC 81mg tab ORAL SCH (09:22)
[2018-01-10] MEDS: Heparin 5000 units/ml inj SUBQ SCH ×2 (09:24→20:55)
[2018-01-10] MEDS: HYDROcodone/Acetamin 10/325 tab ORAL PRN (10:27)
[2018-01-10 12:00] VITALS: BP 125/68
[2018-01-10 16:00] VITALS: BP 145/84
[2018-01-10] MEDS: Vancomycin 1gm in D5W 275ml IVPB SCH (16:24)
[2018-01-10 20:00] VITALS: BP 145/70
[2018-01-11] VITALS: BP 140/85
[2018-01-11] MEDS: Albuterol 90mcg Inhaler 8gm INH SCH ×4 (00:40→19:55)
[2018-01-11 04:00] VITALS: BP 138/68
[2018-01-11 08:00] VITALS: BP 152/76
[2018-01-11] MEDS: Aspirin EC 81mg tab ORAL SCH (08:44)
[2018-01-11] MEDS: Atenolol 12.5mg PO SCH ×2 (08:44→20:39)
[2018-01-11] MEDS: Heparin 5000 units/ml inj SUBQ SCH ×2 (08:46→20:44)
--- NOTE | 2018-01-11 09:45 | Progress Note ---
DATE: 01/10/2018 CARDIOLOGY PROGRESS NOTE SUBJECTIVE: The patient has no new complaints. Her right leg pain has finally improved, although not resolved by any means. The patient has refused her stress test. She is aware of the reasons for this study based on a troponin level elevation. She feels that it can be "put on the table" for a while. She understands the risks of possible infarction. OBJECTIVE: VITAL SIGNS: Temperature maximum 103 degrees, blood pressure 146/63, heart rate 63, and respiratory rate 20. LUNGS: Clear. CARDIAC: Regular. Normal S1 and S2. ABDOMEN: Soft. EXTREMITIES: Edema is 1+, right greater than left and erythema has diminished significantly. IMPRESSION: 1. Cellulitis, right lower extremity. False positive troponin levels suspected, however, cannot rule out acute myocardial ischemia. 2. History of left deep venous thrombosis. 3. History of chronic obstructive pulmonary disease. 4. Hypertensive heart disease. 5. Chronic kidney disease. PLAN: 1. IV antibiotics. 2. Foot care. 3. Defer stress test per the patient's request. 4. Continue anti-platelet and antianginal regimen. Juliette Iglesias JOB#: [id number] CC:
[2018-01-11 12:00] VITALS: BP 115/67
[2018-01-11] MEDS: HYDROcodone/Acetamin 10/325 tab ORAL PRN (12:35)
[2018-01-11 16:00] VITALS: BP 105/75
[2018-01-11] MEDS: Vancomycin 1gm in D5W 275ml IVPB SCH (16:07)
--- NOTE | 2018-01-11 16:42 | General Progress Note ---
Assessment/Plan Assessment/Plan IMPRESSION: Possible non-ST elevation myocardial infarction versus troponin leak, evidence of chronic renal failure, evidence of chronic anemia, evidence of right lower extremity cellulitis with associated edema, and history of chronic obstructive pulmonary disease. fever PLAN care as is IV antibiotics; ID evaluation not ready for discharge cards recommendations noted will dc home when cleared by ID d/w impression, plan, and exam edited and reviewed in detail care discussed with RN Subjective Allergies: Coded Allergies: IODINE (Unverified Allergy, Mild, Hives, 07/04/14) Subjective care noted refused stress test wants to go home but have fever spike to 101.8 labs and cultures noted and reviewed Objective Last 24 Hour Vital Signs Date Time Temp Pulse Resp B/P (MAP) Pulse Ox O2 Delivery O2 Flow Rate FiO2 01/11/18 16:00 98.2 71 18 105/75 97 Room Air 98.2 01/11/18 16:00 72 01/11/18 13:34 99.5 01/11/18 13:23 76 18 94 Room Air 21 01/11/18 13:22 75 16 94 Room Air 21 01/11/18 12:35 99.5 01/11/18 12:00 77 01/11/18 12:00 99.5 79 18 115/67 95 Room Air 99.5 01/11/18 08:45 77 152/76 01/11/18 08:00 99.1 77 18 152/76 96 Room Air 99.1 01/11/18 08:00 73 01/11/18 07:09 72 18 94 Room Air 21 01/11/18 07:05 Room Air 21 01/11/18 07:05 93 Nasal Cannula 21 01/11/18 07:05 68 16 93 Room Air 21 01/11/18 04:00 97.9 71 20 138/68 94 Room Air 97.9 01/11/18 04:00 67 01/11/18 01:04 100.2 01/11/18 00:43 74 18 95 Nasal Cannula 2.0 28 01/11/18 00:40 70 18 95 Nasal Cannula 2.0 28 01/11/18 00:05 101.8 01/11/18 00:00 74 01/11/18 00:00 101.8 76 20 140/85 95 Room Air 101.8 01/10/18 20:00 99.7 77 20 145/70 94 Room Air 99.7 01/10/18 20:00 71 01/10/18 19:00 Nasal Cannula 2.0 28 01/10/18 19:00 94 Nasal Cannula 2.0 28 01/10/18 19:00 65 18 94 Nasal Cannula 2.0 28 01/10/18 18:58 65 18 94 Room Air 21 Intake and Output 01/10/18 01/11/18 19:00 07:00 Intake Total 665.000 ml 50 ml Balance 665.000 ml 50 ml Intake Oral 390 ml 50 ml IV Total 275.000 ml # Voids 3 3 Labs Test 01/08/18 20:15 01/09/18 03:40 01/10/18 15:20 Troponin I 0.159 ng/mL (0.000-0.056) 0.163 ng/mL (0.000-0.056) White Blood Count 8.7 K/UL (4.8-10.8) Red Blood Count 3.38 M/UL (4.20-5.40) Hemoglobin 11.0 G/DL (12.0-16.0) Hematocrit 31.3 % (37.0-47.0) Mean Corpuscular Volume 92 FL (80-99) Mean Corpuscular Hemoglobin 32.6 PG (27.0-31.0) Mean Corpuscular Hemoglobin Concent 35.3 G/DL (32.0-36.0) Red Cell Distribution Width 11.5 % (11.6-14.8) Platelet Count 179 K/UL (150-450) Mean Platelet Volume 6.3 FL (6.5-10.1) Neutrophils (%) (Auto) 39.6 % (45.0-75.0) Lymphocytes (%) (Auto) 40.5 % (20.0-45.0) Monocytes (%) (Auto) 13.5 % (1.0-10.0) Eosinophils (%) (Auto) 4.7 % (0.0-3.0) Basophils (%) (Auto) 1.7 % (0.0-2.0) Sodium Level 133 MMOL/L (136-145) Potassium Level 4.1 MMOL/L (3.5-5.1) Chloride Level 100 MMOL/L (98-107) Carbon Dioxide Level 28 MMOL/L (21-32) Anion Gap 5 mmol/L (5-15) Blood Urea Nitrogen 22 mg/dL (7-18) Creatinine 1.8 MG/DL (0.55-1.30) Estimat Glomerular Filtration Rate 33.8 mL/min (>60) Glucose Level 93 MG/DL (74-106) Calcium Level 8.8 MG/DL (8.5-10.1) Total Bilirubin 0.5 MG/DL (0.2-1.0) Aspartate Amino Transf (AST/SGOT) 29 U/L (15-37) Alanine Aminotransferase (ALT/SGPT) 28 U/L (12-78) Alkaline Phosphatase 48 U/L (46-116) Total Protein 7.7 G/DL (6.4-8.2) Albumin 2.8 G/DL (3.4-5.0) Globulin 4.9 g/dL Albumin/Globulin Ratio 0.6 (1.0-2.7) Vancomycin Level Trough 11.6 ug/mL (5.0-12.0) Height (Feet): 5 Height (Inches): 4.00 Weight (Pounds): 235 Objective GENERAL: A well-developed female, comfortable, in no significant distress. HEENT: Negative. Extraocular movements are grossly intact. NECK: Supple. LUNGS: Fairly clear and symmetric. No rhonchi or wheezes. CARDIAC: S1 and S2. Regular rate and rhythm without murmurs, rubs, or gallops. ABDOMEN: Soft, nontender, and nondistended. Obese. EXTREMITIES: No cyanosis or clubbing. edema of the right leg with associated erythema NEUROLOGICAL: Grossly nonfocal. Alert and oriented x3. SHANE HOLLIDAY Jan 11, 2018 16:42
--- NOTE | 2018-01-11 19:30 | Consultation ---
DATE OF CONSULTATION: 01/11/2018 INFECTIOUS DISEASE CONSULTATION This consult is for coverage of Dr. Benson. CONSULTING PHYSICIAN: Raul Gtz M.D. PRIMARY ATTENDING PHYSICIAN: Padilla Quiros M.D. REASON FOR CONSULT: Right leg cellulitis and persistent fever. HISTORY OF PRESENT ILLNESS: The patient is a 67-year-old, female admitted on 01/07/2018 because of right leg swelling and pain. She had elevated troponin. Since admission, she was started on IV antibiotics, has on and off fever, had a fever of 101.8 degrees last night. The patient refused to have cardiac workup and wants to be discharged. PAST MEDICAL HISTORY: Significant for hypertension, COPD, CHF, and osteoarthritis. MEDICATIONS: The patient received steroid injection. SOCIAL HISTORY: . No history of alcohol, drug abuse, or smoking. Lives at home. REVIEW OF SYSTEMS: Just complaining of right knee pain. Generally, she is a poor historian. PHYSICAL EXAMINATION: GENERAL APPEARANCE: No acute distress, seems to be obese. VITAL SIGNS: Temperature 99.1 degrees, pulse 77, and blood pressure 152/76. HEAD AND NECK: [place] conjunctivae. HEART: S1 and S2 regular. LUNGS: Clear. ABDOMEN: Soft and nontender. EXTREMITIES: She has bilateral arthritic changes of knees; has bilateral leg edema, more in the right side; and has erythema and warmth in the right leg below the knee. There is tenderness in foot. LABORATORY AND DIAGNOSTIC DATA: WBC 8.7, hemoglobin 11, hematocrit 31.3, and platelets 179. Sodium 132, potassium 4.1, chloride 100, bicarbonate 28, BUN 22, creatinine 1.8, and glucose 93. IMPRESSION: 1. Cellulitis of right lower extremity. 2. Persistent fever. 3. Osteoarthritis of knee. 4. Morbid obesity. 5. Renal failure. RECOMMENDATION: We will continue with vancomycin. We will add ceftriaxone. We will ask for urinalysis & urine culture. If there is fever of 101 degrees, we will send another blood culture. At the end of my exam, I thank Dr. Quiros for involving me in the care of this patient. Raul Gtz M.D. DR: CINTHIA JOB#: [id number] CC: ELISEO
--- NOTE | 2018-01-11 19:30 | Progress Note ---
DATE: 01/11/2018 CARDIOLOGY PROGRESS NOTE SUBJECTIVE: The patient has refused to proceed with a stress test. She wants to consider it as an outpatient. She notes no chest pain. She has been made aware of the elevated troponin levels, although they do not meet strict criteria for infarction, but may raise concern over coronary atherosclerosis that may be hemodynamically significant. The patient understands. Right leg pain decreasing, swelling decreasing, redness decreasing. OBJECTIVE: VITAL SIGNS: T-max yesterday 103 degrees and now 99.5 degrees, blood pressure 105/75, and pulse 71. LUNGS: Clear. CARDIAC: Regular. ABDOMEN: Soft. EXTREMITIES: There is 1+ dependent edema on the right leg. IMPRESSION: 1. Cellulitis right lower extremity. 2. Persistent fevers. 3. History of left lower extremity DVT. 4. Chronic ischemic heart disease with elevated troponin levels, but no clinical criteria for myocardial infarction. 5. Moderate protein-calorie malnutrition. 6. Acute on chronic kidney injury. PLAN: 1. Recheck laboratory studies. 2. Continue antimicrobials. 3. DVT prophylaxis. 4. Protein supplements. 5. Maintain anti-platelet therapy and current cardiovascular drugs without change. 6. Outpatient stress test per the patient's request. Indio Martini M.D. DR: LILLIE JOB#: [id number] CC:
[2018-01-11 20:00] VITALS: BP 114/59
[2018-01-12] VITALS: BP 137/80
--- NOTE | 2018-01-12 00:07 | Diagnostic Imaging Report ---
APPROVED REPORT CPT Code: 64129 Symptoms Comments: Pain BILATERAL: Common femoral artery waveform analysis is within normal limits at rest. Color flow duplex sonography reveals minimal calcification throughout the superficial femoral and popliteal arteries. There is no evidence of stenosis or occlusion within these segments. The posterior tibial, anterior tibial, and dorsalis pedis arteries are patent. Doppler tibial artery waveform analyses are within normal limits, bilaterally. There is no evidence of hemodynamically significant arterial occlusive disease, bilaterally.
--- NOTE | 2018-01-12 00:07 | Diagnostic Imaging Report ---
APPROVED REPORT CPT Code: 48258 Present Symptoms Lower Extremity Pain: Left LEFT LEG: Venous imaging reveals a patent deep venous system. There is no evidence of thrombus within the femoral, popliteal or tibial segments. The greater saphenous vein is also within normal limits. Doppler indicates normal spontaneous flow within these segments.
[2018-01-12] MEDS: Albuterol 90mcg Inhaler 8gm INH SCH ×2 (00:44→08:20)
[2018-01-12 04:00] VITALS: BP 151/81
[2018-01-12 08:00] VITALS: BP 130/71
[2018-01-12] MEDS: Aspirin EC 81mg tab ORAL SCH (08:56)
[2018-01-12] MEDS: Atenolol 12.5mg PO SCH (08:57)
[2018-01-12] MEDS: Heparin 5000 units/ml inj SUBQ SCH (09:00)
[2018-01-12] MEDS: HYDROcodone/Acetamin 10/325 tab ORAL PRN (09:15)
--- NOTE | 2018-01-12 10:35 | Infectious Diseases Prog Note ---
Assessment/Plan Assessment/Plan antibiotics : vancomycin iv A 1. right leg cellulitis 2. renal failure 3. hypertension 4. COPD 5. CHF P 1. d/c iv vancomycin 2. start po linezolid 3. will follow up cultures Subjective Constitutional: Denies: fever, chills Respiratory: Reports: shortness of breath, dry cough Gastrointestinal/Abdominal: Denies: nausea, vomiting, diarrhea Musculoskeletal: Reports: pain Allergies: Coded Allergies: IODINE (Unverified Allergy, Mild, Hives, 07/04/14) Objective Vital Signs Last 24 Hour Vital Signs Date Time Temp Pulse Resp B/P (MAP) Pulse Ox O2 Delivery O2 Flow Rate FiO2 01/12/18 09:15 98.3 01/12/18 08:56 72 130/71 01/12/18 08:23 59 20 95 Room Air 21 01/12/18 08:20 58 20 95 Room Air 21 01/12/18 08:18 Room Air 01/12/18 08:17 95 Room Air 01/12/18 08:00 98.3 72 19 130/71 96 Room Air 98.3 01/12/18 04:00 98.2 68 20 151/81 96 Room Air 98.2 01/12/18 04:00 65 01/12/18 02:20 100.2 01/12/18 01:04 100.8 01/12/18 01:00 100.1 100.1 01/12/18 00:47 69 18 94 Room Air 21 01/12/18 00:45 70 18 92 Room Air 21 01/12/18 00:00 73 01/12/18 00:00 100.8 78 20 137/80 96 Room Air 100.8 01/11/18 20:00 98.0 78 18 114/59 96 Room Air 98.0 01/11/18 20:00 76 01/11/18 19:56 68 18 94 Room Air 21 01/11/18 19:49 66 18 93 Room Air 21 01/11/18 19:49 93 Room Air 21 01/11/18 19:49 Room Air 21 01/11/18 16:00 98.2 71 18 105/75 97 Room Air 98.2 01/11/18 16:00 72 01/11/18 13:34 99.5 01/11/18 13:23 76 18 94 Room Air 21 01/11/18 13:22 75 16 94 Room Air 21 01/11/18 12:35 99.5 01/11/18 12:00 77 01/11/18 12:00 99.5 79 18 115/67 95 Room Air 99.5 Height (Feet): 5 Height (Inches): 4.00 Weight (Pounds): 235 Respiratory/Chest: lungs clear Cardiovascular: normal rate, regular rhythm, no gallop/murmur Abdomen: soft, non tender Extremities: other - + right leg erythema, + edema Current Medications Medications (Trade) Dose Ordered Sig/Raji Route PRN Reason Start Time Stop Time Status Last Admin Dose Admin Acetaminophen (Tylenol) 650 mg Q4H PRN ORAL Mild Pain/Temp > 100.5 01/07/18 18:45 02/06/18 18:44 01/12/18 01:04 Acetaminophen/ Hydrocodone Bitart ([place] 10/325) 1 tab Q6H PRN ORAL Severe Pain (Pain Scale 7-10) 01/07/18 18:15 01/14/18 18:14 01/12/18 09:15 Al Hydroxide/Mg Hydroxide (Mylanta) 30 ml Q4H PRN ORAL Abdominal cramps 01/07/18 18:45 02/06/18 18:44 Albuterol Sulfate (Proventil MDI) 2 puff Q6HRT INH 01/08/18 01:00 02/07/18 00:59 01/12/18 08:20 Amlodipine Besylate (Norvasc) 10 mg DAILY ORAL 01/08/18 09:00 02/07/18 08:59 01/12/18 08:56 Aspirin (Ecotrin) 81 mg DAILY ORAL 01/08/18 09:00 02/07/18 08:59 01/12/18 08:56 Atenolol (Tenormin) 12.5 mg Q12HR PO 01/08/18 09:00 02/07/18 08:59 01/12/18 08:57 Cetylpyridinium Chloride (Cepacol) 1 lozg Q2H PRN KRYSTAL For Cough 01/09/18 17:00 02/08/18 16:59 01/09/18 17:18 Furosemide (Lasix) 20 mg DAILY ORAL 01/08/18 09:00 02/07/18 08:59 01/11/18 08:44 Heparin Sodium (Porcine) (Heparin 5000 units/ml) 5,000 units EVERY 12 HOURS SUBQ 01/07/18 21:00 02/06/18 20:59 01/11/18 20:44 Magnesium Hydroxide (Mom) 30 ml DAILYPRN PRN ORAL Constipation 01/07/18 18:45 02/06/18 18:44 Multivitamins (Multivitamins) 1 tab DAILY ORAL 01/08/18 09:00 02/07/18 08:59 01/11/18 08:44 Pantoprazole (Protonix) 40 mg DAILY ORAL 01/08/18 09:00 02/07/18 08:59 01/12/18 08:56 Vancomycin HCl (Vanco rx to dose) 1 ea DAILY PRN MISC Per rx protocol 01/07/18 18:45 02/06/18 18:44 Vancomycin HCl 1 gm/Dextrose 275 ml @ 183.708 mls/hr Q24H IVPB 01/08/18 16:00 01/13/18 23:59 01/11/18 16:07 Zolpidem Tartrate (Ambien) 5 mg HSPRN PRN ORAL Insomnia 01/07/18 18:45 01/14/18 18:44 01/08/18 00:40 KENDRA LUIS Jan 12, 2018 10:35
[2018-01-12 12:00] VITALS: BP 128/76
[2018-01-12] MEDS ORDERED: NS 275ml ONE (13:15)
[2018-01-12] MEDS ORDERED: Tubing IV Secondary IV ONE (13:15)
--- NOTE | 2018-01-12 15:12 | General Progress Note ---
Assessment/Plan Assessment/Plan IMPRESSION: Possible non-ST elevation myocardial infarction versus troponin leak, evidence of chronic renal failure, evidence of chronic anemia, evidence of right lower extremity cellulitis with associated edema, and history of chronic obstructive pulmonary disease. fever PLAN care as is cleared by ID doxy x 1 week cards recommendations noted will dc home with home health and wound care follow up closely after discharge d/w impression, plan, and exam edited and reviewed in detail care discussed with RN Subjective Allergies: Coded Allergies: IODINE (Unverified Allergy, Mild, Hives, 07/04/14) Subjective care noted refused stress test wants to go home no fever cleared by ID labs and cultures noted and reviewed Objective Last 24 Hour Vital Signs Date Time Temp Pulse Resp B/P (MAP) Pulse Ox O2 Delivery O2 Flow Rate FiO2 01/12/18 12:00 98.4 71 18 128/76 95 Room Air 98.4 01/12/18 12:00 71 01/12/18 10:14 98.3 01/12/18 09:15 98.3 01/12/18 08:56 72 130/71 01/12/18 08:23 59 20 95 Room Air 21 01/12/18 08:20 58 20 95 Room Air 21 01/12/18 08:18 Room Air 01/12/18 08:17 95 Room Air 01/12/18 08:00 98.3 72 19 130/71 96 Room Air 98.3 01/12/18 08:00 67 01/12/18 04:00 98.2 68 20 151/81 96 Room Air 98.2 01/12/18 04:00 65 01/12/18 02:20 100.2 01/12/18 01:04 100.8 01/12/18 01:00 100.1 100.1 01/12/18 00:47 69 18 94 Room Air 21 01/12/18 00:45 70 18 92 Room Air 21 01/12/18 00:00 73 01/12/18 00:00 100.8 78 20 137/80 96 Room Air 100.8 01/11/18 20:00 98.0 78 18 114/59 96 Room Air 98.0 01/11/18 20:00 76 01/11/18 19:56 68 18 94 Room Air 21 01/11/18 19:49 66 18 93 Room Air 21 01/11/18 19:49 93 Room Air 21 01/11/18 19:49 Room Air 21 01/11/18 16:00 98.2 71 18 105/75 97 Room Air 98.2 01/11/18 16:00 72 Intake and Output 01/11/18 01/12/18 19:00 07:00 Intake Total 915.000 ml Output Total 250 ml 200 ml Balance 665.000 ml -200 ml Intake Oral 640 ml IV Total 275.000 ml Output Urine Total 250 ml 200 ml # Voids 3 2 Height (Feet): 5 Height (Inches): 4.00 Weight (Pounds): 235 Objective GENERAL: A well-developed female, comfortable, in no significant distress. HEENT: Negative. Extraocular movements are grossly intact. NECK: Supple. LUNGS: Fairly clear and symmetric. No rhonchi or wheezes. CARDIAC: S1 and S2. Regular rate and rhythm without murmurs, rubs, or gallops. ABDOMEN: Soft, nontender, and nondistended. Obese. EXTREMITIES: No cyanosis or clubbing. edema of the right leg with associated erythema NEUROLOGICAL: Grossly nonfocal. Alert and oriented x3. SHANE HOLLIDAY Jan 12, 2018 15:12
--- NOTE | 2018-01-12 21:45 | Discharge Summary 2 SIG ---
DATE OF ADMISSION: 01/07/2018 DATE OF DISCHARGE: 01/12/2018 CONSULTANTS: 1. Pati Benson M.D. 2. Indio Martini M.D. BRIEF HOSPITAL COURSE: The patient is a 67-year-old female who presented to ED for complaints of pain and swelling on the right leg that began after receiving an IM injection of steroids for asthma. She has medical history significant for hypertension, COPD, diabetes, and CHF. On evaluation at ED, she was noted to have elevated troponin at 0.17. Venous duplex of the lower extremity was negative for DVT. She was admitted for cardiac evaluation for possible non-ST OR. She was given vancomycin and ceftriaxone for cellulitis of the right lower extremity. Blood cultures did not isolate any growth. Cardiac troponins were monitored. She was ordered cardiac stress test, however, the patient refused. She was given aspirin and was continued on atenolol, Lasix, and Norvasc. Antibiotic was eventually switched to Zyvox p.o. She was then discharged home. Advised to follow up with Cardiology as an outpatient. FINAL DIAGNOSES: 1. Right leg cellulitis. 2. Possible [id number] OR versus troponin leak. 3. Chronic renal failure. 4. Chronic anemia. 5. COPD. 6. Moderate protein-calorie malnutrition. 7. Acute on chronic kidney injury. DISPOSITION: The patient was discharged home. DISCHARGE MEDICATIONS: Refer to medication list. DISCHARGE INSTRUCTIONS: Follow up with PCP in a week. She will need outpatient stress test. Padilla Quiros M.D. I have been assigned to dictate discharge summary on this account and I was not involved in the patient's management. [employer] N.P. DR: Rudy JOB#: [id number] CC:
--- NOTE | 2018-01-13 04:45 | Progress Note ---
DATE: 01/12/2018 CARDIOLOGY PROGRESS NOTE SUBJECTIVE: The patient notes improvement in her right leg pain and swelling. She is able to ambulate. She has no chest pain or shortness of breath. She understands the possibility of having suffered a heart attack and have coronary disease, but because she is asymptomatic and feeling well, to defer this for at least two weeks. She has a specific zoroastrian related activities scheduled in one week and wants to complete that. OBJECTIVE: VITAL SIGNS: Blood pressure 130/71, pulse 72, respirations 20, and sinus rhythm. NECK: Supple. LUNGS: Clear. CARDIAC: Regular. Normal S1, S2 with a fourth heart sound. ABDOMEN: Soft. EXTREMITIES: Trace edema. No erythema of the leg was present. IMPRESSION: 1. Right lower extremity cellulitis, recovering. 2. Chronic obstructive pulmonary disease stable. 3. Fevers resolved. 4. Possible [id number] myocardial infarction. 5. Chronic kidney disease. 6. Chronic anemia likely due to chronic kidney disease. 7. Hypertensive heart disease. PLAN: 1. Outpatient followup. 2. Stress test to follow. 3. Return to the emergency room for any new signs of chest pain or shortness of breath. 4. Medication regimen reviewed in detail. Indio Martini M.D. DR: ELA JOB#: [id number] CC:
== END 2018-01-12 13:16 | disposition home or self-care (01) | DRG 602 ==
LOC: EMR 13:00 → 2W 14:29 → EDBEDREQ 14:40
DX: L03.115 Cellulitis of right lower limb (principal); I21.4 Non-ST elevation (NSTEMI) myocardial infarction; N17.9 Acute kidney failure, unspecified; E87.1 Hypo-osmolality and hyponatremia; E44.0 Moderate protein-calorie malnutrition; I13.10 Hypertensive heart and chronic kidney disease without heart failure, with stage 1 through stage 4 chronic kidney disease, or unspecified chronic kidney disease; E11.22 Type 2 diabetes mellitus with diabetic chronic kidney disease; N18.9 Chronic kidney disease, unspecified; J44.9 Chronic obstructive pulmonary disease, unspecified; I50.9 Heart failure, unspecified; Z87.891 Personal history of nicotine dependence; M17.0 Bilateral primary osteoarthritis of knee; E66.01 Morbid (severe) obesity due to excess calories; Z86.718 Personal history of other venous thrombosis and embolism; Z88.8 Allergy status to other drugs, medicaments and biological substances; D63.1 Anemia in chronic kidney disease
CPT/HCPCS: 36415; 71045; 80048; 80053; 80061; 80202; 82550; 82553; 83605; 83690; 84443; 84484; 85025; 85610; 85730; 87040; 93005; 93925; 93971; 94640; 94760; 99285; J2405; J2785; J8499